=== PATIENT | male | born 1990 | race Caucasian/White ===

== ENCOUNTER 2024-05-18 16:38 | Emergency (ER) | payer OTHER ==
[~2024-05-18] VITALS: Ht 165.1 cm; Wt 68.0 kg
[2024-05-18 16:50] VITALS: O2SAT 100
[2024-05-18] MEDS: ONDANSETRON HCL 4MG/2ML INJ IM ONE (19:45)
[2024-05-18 20:22] LABS: HEMATOCRIT 40.9 % (42.0-52.0); HEMOGLOBIN 14.4 g/dL (14.0-18.0); MEAN CORPUSCULAR HEMOGLOBIN 30.1 pg (28.0-32.0); MEAN CORPUSCULAR HGB CONC 35.1 g/dL (31.0-37.0); MEAN CORPUSCULAR VOLUME 85.7 fL (80.0-94.0); PLATELET 241 x1000/uL (130-400); RED BLOOD CELL COUNT 4.78 mill/uL (4.7-6.1); RED CELL DISTRIBUTION WIDTH 14.3 % (11.6-14.6); WHITE BLOOD COUNT 5.8 x1000/uL (4.5-11.0)
[2024-05-18 20:24] LABS: CARBON DIOXIDE 27 mEq/L (21-32); CHLORIDE 106 mEq/L (98-107); POTASSIUM 3.6 mEq/L (3.5-5.1); SODIUM 142 mEq/L (136-145)
[2024-05-18 20:25] LABS: CALCIUM 9.5 mg/dL (8.7-10.4)
[2024-05-18 20:29] LABS: CREATININE 0.8 mg/dL (0.6-1.3)
[2024-05-18 20:30] LABS: GLUCOSE 90 mg/dL (70-105); UREA NITROGEN BLOOD 11 mg/dL (9-23)
[2024-05-18 20:32] LABS: ALANINE AMINOTRANSFERASE 128 IU/L (10-49); ALBUMIN 4.8 g/dL (3.2-4.8); ASPARTATE AMINOTRANSFERASE 67 IU/L (<34); BILIRUBIN DIRECT 0.5 mg/dL (<=3.0); PROTEIN TOTAL 8.1 g/dL (6.0-8.3)
[2024-05-18 20:39] LABS: BILIRUBIN TOTAL 4.8 mg/dL (0.1-1.0)
[2024-05-18 20:40] LABS: TROPONIN I HIGH SENSITIVITY < 4 ng/L (3.0-53)
[2024-05-18 21:40] VITALS: BP 125/67; PULSE 97; RESP 18; TEMP 36.78072; O2SAT 100
== END 2024-05-18 21:40 | disposition home or self-care (01) ==
LOC: ER 16:38
DX: R10.13 Epigastric pain (principal); R07.9 Chest pain, unspecified
CPT/HCPCS: 99283; 80076; 80048; 83690; 85027; 84484; 36415; 96372; J2405